=== PATIENT | female | born 1980 | race Asian ===

== ENCOUNTER 2017-05-03 05:30 | Inpatient (IN) | payer SELFPAY ==
[~2017-05-03] VITALS: Ht 177 cm; Wt 77.1 kg
[2017-05-03] MEDS ORDERED: LACTATED RINGERS 1,000 ML IV SCH (07:59)
[2017-05-03] MEDS ORDERED: CARBOPROST 250 MCG/ML AMP IM PRN (08:00)
[2017-05-03] MEDS ORDERED: PROMETHAZINE 25 MG/ML VIAL IVP PRN (08:00)
[2017-05-03] MEDS ORDERED: OXYTOCIN 10 UNITS/ML VIAL IM SCH (08:00)
[2017-05-03] MEDS ORDERED: METHYLERGONOVINE 0.2 MG/ML AMP IM PRN (08:00)
[2017-05-03] MEDS ORDERED: NALBUPHINE HYDROCHLORIDE 10 MG/ML VIAL IVP PRN (08:00)
[2017-05-03 08:25] LABS: BASOPHILS # (AUTO) 0.1 K/uL (0.00-0.22); BASOPHILS % (AUTO) 0.8 % (0.0-2.0); EOSINOPHILS # (AUTO) 0.2 K/uL (0-0.4); EOSINOPHILS % (AUTO) 1.1 % (0.0-4.0); HEMATOCRIT 32.7 % (36-48); HEMOGLOBIN 10.8 g/dL (12.0-16.0); LYMPHOCYTES # (AUTO) 1.8 K/uL (2.5-16.5); LYMPHOCYTES % (AUTO) 12.1 % (20.5-51.1); MEAN CORPUSCULAR HEMOGLOBIN 30 pg (27-31); MEAN CORPUSCULAR HGB CONC 33 g/dL (33-37); MEAN CORPUSCULAR VOLUME 92 fL (80-94); MONOCYTES # (AUTO) 0.6 K/uL (0.8-1.0); MONOCYTES % (AUTO) 4.2 % (1.7-9.3); NEUTROPHILS # (AUTO) 12.4 K/uL (1.8-7.7); NEUTROPHILS % (AUTO) 81.8 % (42.2-75.2); PLATELET COUNT (AUTO) 267 K/uL (140-450); RED BLOOD CELL COUNT(AUTO) 3.55 MIL/uL (4.20-5.40); WHITE BLOOD COUNT (AUTO) 15.1 K/uL (4.8-10.8)
[2017-05-03 08:37] LABS: APPEARANCE,URINE SL CLOUDY (CLEAR); BILIRUBIN,URINE NEGATIVE (NEGATIVE); BLOOD, URINE 3+ (NEGATIVE); COLOR,URINE YELLOW (YELLOW); LEUKOCYTE ESTERASE ,URINE 1+ (NEGATIVE); NITRITE, URINE NEGATIVE (NEGATIVE); UGLUCOSE NEGATIVE (NEGATIVE)
[2017-05-03] MEDS ORDERED: ROPIVACAINE 0.2%/NS PREMIX 250 ML EPI ONE (08:51)
[2017-05-03 08:57] VITALS: BP 115/73
[2017-05-03] MEDS ORDERED: INFLUENZA VIRUS VACCINE QUAD 0.5 ML SYR IMVAC SCH (09:00)
[2017-05-03 09:26] LABS: ANION GAP 8.7 (8-16); CARBON DIOXIDE 26.5 mmol/L (21-32); POTASSIUM 3.2 mmol/L (3.5-5.1)
[2017-05-03 09:27] LABS: CREATININE 0.5 mg/dL (0.6-1.3)
[2017-05-03] MEDS ORDERED: AMPICILLIN 2,000 MG in NACL 0.9% 100 ML IV ONE ×2 (09:30→10:05)
[2017-05-03] MEDS ORDERED: OXYTOCIN 20 UNITS in LACTATED RINGERS 1,000 ML IV SCH ×2 (09:30→10:05)
[2017-05-03] MEDS ORDERED: ROPIVACAINE 0.2%/NS PREMIX 250 ML EPI SCH (09:35)
[2017-05-03 09:42] LABS: TOTAL BILIRUBIN 0.7 mg/dL (0.0-1.0)
[2017-05-03 09:43] LABS: ALBUMIN 1.6 g/dL (3.4-5.0)
--- NOTE | 2017-05-03 10:01 | NUR ---
PATIENT HAS BEEN SCREENED AND CATEGORIZED LOW NUTRITION RISK. PATIENT WILL BE SEEN WITHIN 7 DAYS OF ADMISSION. 05/09/[address]
[2017-05-03] MEDS ORDERED: AMPICILLIN 2,000 MG VIAL ONE (10:03)
[2017-05-03 10:21] LABS: RBC,URINE 3-10 (FEW) /HPF (0-5); WBC,URINE 0-5 (RARE) /HPF (0-5)
[2017-05-03] MEDS ORDERED: OXYTOCIN 10 UNITS/ML VIAL ONE (12:55)
[2017-05-03] MEDS ORDERED: BENZOCAINE/MENTHOL 20%-0.5% 60 GM CAN TP PRN (13:55)
[2017-05-03] MEDS ORDERED: oxyCODONE/APAP 5/325 MG 1 TAB TAB PO PRN (13:55)
[2017-05-03] MEDS ORDERED: AMPICILLIN 2,000 MG in NACL 0.9% 100 ML IV SCH (14:00)
[2017-05-03] MEDS ORDERED: DOCUSATE SOD/SENNA 50/8.6 MG 1 TAB PO PRN (14:00)
[2017-05-03] MEDS ORDERED: IBUPROFEN 800 MG TAB PO PRN (14:00)
[2017-05-03] MEDS ORDERED: TEMAZEPAM 15 MG CAP PO PRN (14:00)
[2017-05-03] MEDS ORDERED: AMPICILLIN 1,000 MG in NACL 0.9% 50 ML IV SCH (14:00)
[2017-05-03] MEDS ORDERED: SYN.075 PO (15:48)
[2017-05-03] MEDS ORDERED: AMMONIA AROMATIC 1 INHL INH ONE (16:40)
[2017-05-03] MEDS: HYDROcodone/APAP 5/325 MG 1 TAB TAB PO PRN (19:37)
[2017-05-04 06:22] LABS: HEMATOCRIT 29.5 % (36-48); HEMOGLOBIN 9.7 g/dL (12.0-16.0)
[2017-05-04] MEDS ORDERED: LEVOTHYROXINE 0.075 MG TAB PO SCH (06:30)
[2017-05-04 17:11] LABS: RAPID PLASMA REAGIN NON-REACTIVE (Non Reactiv)
[2017-05-04] MEDS: HYDROcodone/APAP 5/325 MG 1 TAB TAB PO PRN (20:43)
== END 2017-05-05 13:00 | disposition home or self-care (01) | DRG 775 ==
LOC: MLD 05:30 → MFCC 16:45
PROVIDERS: ADMIT Obstetrics & Gynecology; ATTEND Obstetrics & Gynecology
PROC: 10E0XZZ Delivery of Products of Conception, External Approach (ICD-10-PCS; principal; 2017-05-03)
PROC: 0W8NXZZ Division of Female Perineum, External Approach (ICD-10-PCS; 2017-05-03)
PROC: 3E0S3BZ Introduction of Anesthetic Agent into Epidural Space, Percutaneous Approach (ICD-10-PCS; 2017-05-03)
PROC: 00HU33Z Insertion of Infusion Device into Spinal Canal, Percutaneous Approach (ICD-10-PCS; 2017-05-03)
DX: O80 Encounter for full-term uncomplicated delivery (principal); Z37.0 Single live birth; Z3A.37 37 weeks gestation of pregnancy
CPT/HCPCS: 36415; 51702; 80053; 81001; 85018; 85025; 86592; 86886; 86900; 86901; 87086; 90658; J0290; J2590; J2795; J7120